=== PATIENT | female | born 1985 | race Hispanic/Latino ===

== ENCOUNTER → 2023-09-21 13:48 | Outpatient (REF) | payer OTHER, SELFPAY ==
[2023-09-21] MEDS: THYROGEN 1 MG IM (07:55)
== END ==
LOC: RAD 13:48
PROVIDERS: ATTENDING PHYSICIAN Internal Medicine Endocrinology, Diabetes & Metabolism
DX: C73 Malignant neoplasm of thyroid gland (principal)
CPT/HCPCS: 96372; J3240

== ENCOUNTER → 2023-09-23 10:08 | Outpatient (REF) | payer OTHER, SELFPAY ==
[2023-09-23 10:56] LABS: Beta HCG Quantitative < 2.39 mIU/ml
== END ==
LOC: RAD 10:08
PROVIDERS: ATTENDING PHYSICIAN Internal Medicine Endocrinology, Diabetes & Metabolism; REFERRING PHYSICIAN Radiology Diagnostic Radiology
DX: C73 Malignant neoplasm of thyroid gland (principal)
CPT/HCPCS: 36415; 79005; 84702; A9517